=== PATIENT | male | born 1985 | race Caucasian/White ===

== ENCOUNTER 2020-03-25 14:24 | Emergency (ER) | payer OTHER ==
[~2020-03-25] VITALS: Ht 185.4 cm; Wt 88.9 kg
[2020-03-25] MEDS ORDERED: OMEPRAZOLE MAGN20 MG PO (16:09)
[2020-03-25] MEDS ORDERED: ACET500 PO (16:10)
[2020-03-25] MEDS ORDERED: KETO10 PO (16:10)
== END 2020-03-25 16:27 | disposition home or self-care (01) ==
LOC: ER 14:24
DX: S16.1XXA Strain of muscle, fascia and tendon at neck level, initial encounter (principal); M54.5 Low back pain; M25.552 Pain in left hip; Z88.2 Allergy status to sulfonamides; Z79.899 Other long term (current) drug therapy; V49.50XA Passenger injured in collision with unspecified motor vehicles in traffic accident, initial encounter; Y92.410 Unspecified street and highway as the place of occurrence of the external cause
CPT/HCPCS: 96372; 99283; J1885

== ENCOUNTER 2022-12-29 12:28 | Day surgery (SDC) | payer OTHER ==
[2022-12-29] VITALS (10 sets, daily range): BP systolic 28–140; BP diastolic 71–93
[~2022-12-29] VITALS: Ht 188 cm; Wt 88.2 kg
[~2022-12-29 12:28] MED LIST: ACET500 PO; HYDR1TAB94 PO; KETO10 PO; OMEPRAZOLE MAGN20 MG PO
[2022-12-29] MEDS ORDERED: OMEP20ER PO (12:50)
--- NOTE | 2022-12-29 15:49 | NUR ---
PT IV REMOVED SITE CLEAR CATH INTACT, CHIQUI WELL. Ambulatory in Day Surgery Discharge instructions reviewed with patient. Patient verbalizes understanding. Copy given to patient to take home. Dressing to procedure site clean, dry, intact with no visible drainage, swelling, erythema or bruising noted. Patient States Post-Procedure ride home has been arranged. Discharged via wheelchair to private car for ride home.
== END 2022-12-29 15:53 | disposition home or self-care (01) ==
LOC: ORSCMMR 12:28 → ORD 12:30 → ORSCMMR 13:45 → ORD 13:45 → ORSCMMR 15:53
PROVIDERS: Orthopaedic Surgery
PROC: 0PSJ04Z Reposition Left Radius with Internal Fixation Device, Open Approach (ICD-10-PCS; principal; 2022-12-29 13:45)
DX: S52.332A Displaced oblique fracture of shaft of left radius, initial encounter for closed fracture (principal); I10 Essential (primary) hypertension; V29.99XA Rider (driver) (passenger) of other motorcycle injured in unspecified traffic accident, initial encounter; Z87.891 Personal history of nicotine dependence; Z79.899 Other long term (current) drug therapy
CPT/HCPCS: C1713; J0690; J1885; J2704; J3010; J7120